=== PATIENT | male | born 2005 | race Caucasian/White ===

== ENCOUNTER 2023-06-19 02:05 | Emergency (ER) | payer OTHER ==
[2023-06-19] MEDS ORDERED: Lidocaine 1% w/Epinephrine 1:100K 20 ML VIAL ONE (03:58)
== END 2023-06-19 05:05 | disposition home or self-care (01) ==
LOC: ERS 02:05
DX: S09.90XA Unspecified injury of head, initial encounter (principal); S01.01XA Laceration without foreign body of scalp, initial encounter; S01.21XA Laceration without foreign body of nose, initial encounter; F17.210 Nicotine dependence, cigarettes, uncomplicated; Y00.XXXA Assault by blunt object, initial encounter; Y93.02 Activity, running
CPT/HCPCS: 12013